=== PATIENT | female | born 1980 | race American Indian/Alaskan Native ===

== ENCOUNTER 2021-11-07 03:49 | Emergency (ER) | payer MEDICAID ==
[2021-11-07 05:19] LABS: Basophils % (Auto) 0.8 % (0.0-1.8); Eosinophils # (Auto) 0.1 K/mm3 (0.0-0.4); Eosinophils % (Auto) 1.6 % (0.0-4.3); Hematocrit 36.7 % (30.3-42.9); Hemoglobin 12.1 gm/dl (10.1-14.3); Lymphocytes # (Auto) 2.4 K/mm3 (1.2-5.4); Lymphocytes % (Auto) 39.4 % (13.4-35.0); Mean Corpuscular HGB Conc 33 % (30-34); Mean Corpuscular Volume 93 fl (79-97); Monocytes # (Auto) 0.6 K/mm3 (0.0-0.8); Monocytes % (Auto) 9.6 % (0.0-7.3); Platelet Count 215 K/mm3 (140-440); Red Blood Count 3.92 M/mm3 (3.65-5.03); Red Cell Distribution Width 14.6 % (13.2-15.2)
[2021-11-07 05:35] LABS: Alanine Aminotransferase 12 units/L (7-56); BUN/Creatinine Ratio 11; Blood Urea Nitrogen 11 mg/dL (7-17); Calcium 9.1 mg/dL (8.4-10.2); Hemolysis Index 3
--- NOTE | 2021-11-07 06:08 | Emergency Department Report ---
ED General Adult HPI - General Chief complaint: Psych Stated complaint: SUICIDAL THOUGHTS Time Seen by Provider: 11/07/21 04:19 Source: patient Mode of arrival: Ambulatory Limitations: No Limitations - History of Present Illness Initial comments: patient presents with complaints of suicidal thoughts with a plan to cut her wrist, but has not done yet. Endorses visual hallucinations, but denies auditory, has a hx of depression. Denies CP, SOB, palpitations, diaphoresis. c Severity scale (0 -10): 0 - Related Data Allergies Allergy/AdvReac Type Severity Reaction Status Date / Time codeine Allergy Hives Verified 11/07/21 04:23 nicotine patch Allergy Itching Uncoded 11/07/21 04:24 ED Review of Systems ROS: Stated complaint: SUICIDAL THOUGHTS Other details as noted in HPI Comment: All other systems reviewed and negative Constitutional: denies: chills, fever ED Past Medical Hx - Past Medical History Previous Medical History?: Yes Hx Psychiatric Treatment: Yes (Bipolar, Depression,Anxiety, Schizophrenia) - Surgical History Past Surgical History?: Yes Additional Surgical History: Breast Reduction. X 2. Eye surgery - Social History Smoking Status: Current Every Day Smoker Substance Use Type: Cocaine ED Physical Exam - General Limitations: No Limitations General appearance: alert, in no apparent distress - Head Head exam: Present: atraumatic, normocephalic - Eye Eye exam: Present: PERRL, EOMI - ENT ENT exam: Present: mucous membranes moist, other (airway patent) - Neck Neck exam: Present: other (supple; no JVD) - Respiratory Respiratory exam: Present: other (good air entry, nml I:E, CTAB no use of IFEOMA) - Cardiovascular Cardiovascular Exam: Present: regular rate. Absent: rubs, gallop - Extremities Exam Extremities exam: Present: full ROM. Absent: tenderness - Back Exam Back exam: Present: full ROM. Absent: tenderness - Neurological Exam Neurological exam: Present: alert, oriented X3, CN II-XII intact. Absent: motor sensory deficit - Skin Skin exam: Present: warm, normal color ED Course Vital Signs 11/07/21 11/07/21 11/07/21 04:07 04:47 04:49 Temperature 98 F 98.0 F Pulse Rate 81 80 Respiratory 18 18 Rate Blood Pressure 147/95 Blood Pressure 147/95 [Left] O2 Sat by Pulse 100 98 100 Oximetry ED Medical Decision Making - Lab Data Result diagrams: 11/07/21 04:54 11/07/21 04:54 Laboratory Tests 11/07/21 11/07/21 11/07/21 04:54 04:54 04:54 WBC 6.0 RBC 3.92 Hgb 12.1 Hct 36.7 MCV 93 MCH 31 MCHC 33 RDW 14.6 Plt Count 215 Lymph % (Auto) 39.4 H [place] % (Auto) 9.6 H Eos % (Auto) 1.6 Baso % (Auto) 0.8 Lymph # (Auto) 2.4 Meagher # (Auto) 0.6 Eos # (Auto) 0.1 Baso # (Auto) 0.0 Seg Neutrophils % 48.6 Seg Neutrophils # 2.9 Sodium 138 Potassium 3.3 L Chloride 102.4 Carbon Dioxide 25 Anion Gap 14 BUN 11 Creatinine 1.0 Estimated GFR > 60 BUN/Creatinine Ratio 11 Glucose 97 Calcium 9.1 Total Bilirubin 0.20 AST 17 ALT 12 Alkaline Phosphatase 55 Total Protein 6.9 Albumin 4.0 Albumin/Globulin Ratio 1.4 Salicylates < 0.3 L Acetaminophen Plasma/Serum Alcohol 11/07/21 11/07/21 04:54 04:54 WBC RBC Hgb Hct MCV MCH MCHC RDW Plt Count Lymph % (Auto) [place] % (Auto) Eos % (Auto) Baso % (Auto) Lymph # (Auto) Meagher # (Auto) Eos # (Auto) Baso # (Auto) Seg Neutrophils % Seg Neutrophils # Sodium Potassium Chloride Carbon Dioxide Anion Gap BUN Creatinine Estimated GFR BUN/Creatinine Ratio Glucose Calcium Total Bilirubin AST ALT Alkaline Phosphatase Total Protein Albumin Albumin/Globulin Ratio Salicylates Acetaminophen 5.0 L Plasma/Serum Alcohol < 0.01 UA, U tox pending - Medical Decision Making 1013 signed. MH consulted. Critical care attestation.: If time is entered above; I have spent that time in minutes in the direct care of this critically ill patient, excluding procedure time. ED Disposition Clinical Impression: Suicidal thoughts Disposition: 30 STILL A PATIENT Is pt being admited?: No Does the pt Need Aspirin: No Condition: Stable Time of Disposition: 06:08 (Patient care transferred to Dr. Dickens (oncoming ER doc). Sign out was given to him by me.)
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
--- NOTE | 2021-11-07 12:06 | Event Note ---
Date: 11/07/21 Diagnoses: Schizoaffective Disorder Treatment Plan Continue Olanzapine 5mg po BID Trazodone 50mg po QHS PSYCHOTHERAPY: Supportive psychotherapy provided MEDICAL: Per primary team DELIRIUM PRECAUTIONS: Please re-orient patient frequently, keep lights on during the day, and minimize benzodiazepines and opiates as these medications could worsen patient's confusion. EMAIL PRODUCTION CONSULTANT: Per medical team DISPOSITION: Recommend acute psychiatric inpatient treatment. Will follow. Thank you for the consult. Case staffed with Dr. Morel Have seen the patient myself and patient remains hemodynamically stable and afebrile. Appreciate psychiatric recommendation.
[2021-11-07] MEDS ORDERED: traZODone 50 MG TAB PO SCH (22:00)
[2021-11-08 09:48] VITALS: BP 143/90
--- NOTE | 2021-11-08 10:57 | Progress Note ---
Subjective - Reason for Consult Consult date: 11/08/21 Reason for consult: Suicial ideation - Chief Complaint Chief complaint: The patient was seen this morning. She reports doing well. She reports sleep and appetite as good. The patient denies any current suicidal/homicidal ideation and denies hallucinations. REVIEW OF SYSTEMS Constitutional: Negative for weight loss ENT: Negative for stridor Respiratory: Negative for cough or hemoptysis All other systems reviewed and are negative MENTAL STATUS EXAMINATION General Appearance and Behavior: Age appropriate, wearing appropriate clothes, cooperative, polite with questioning, good eye contact, calm, polite Cooperation: cooperative Psychomotor Behavior: Psychomotor normal Mood: Depressed Affect and affective range: Congruent with stated mood Thought Process: Goal directed Thought Content: Denies Speech: Normal volume, Regular rate and rhythm Suicidal Ideation: Denies Homicidal Ideation: Denies Hallucination: Denies Delusions: None elicited Impulse Control: limited Insight and Judgment: Limited Memory: Intact Attention: attentive Orientation: Alert and oriented Diagnoses: Schizoaffective Disorder Treatment Plan Continue DC 1013 Case management Olanzapine 5mg po QHS Trazodone 50mg po QHS PSYCHOTHERAPY: Supportive psychotherapy provided MEDICAL: Per primary team DELIRIUM PRECAUTIONS: Please re-orient patient frequently, keep lights on during the day, and minimize benzodiazepines and opiates as these medications could worsen patient's confusion. MOTORCYCLE DELIVERER: Per medical team DISPOSITION: Do not recommend acute psychiatric inpatient treatment. Machine Assembler will provide patient with psychiatric outpatient resources. Will sign out. Thank you for the consult. Case staffed with Dr. Morel Medications and Allergies Mental Status Exam - Vital signs Last Vital Signs Temp 98.6 F 11/08/21 09:46 Pulse 62 11/08/21 09:46 Resp 18 11/08/21 09:48 BP 143/90 11/08/21 09:46 Pulse Ox 100 11/08/21 09:48
== END 2021-11-08 12:17 | disposition home or self-care (01) ==
LOC: ED 03:49
DX: R45.851 Suicidal ideations (principal); F31.9 Bipolar disorder, unspecified; F17.200 Nicotine dependence, unspecified, uncomplicated; Z20.822 Contact with and (suspected) exposure to COVID-19
CPT/HCPCS: 36415; 80053; 85025; 99284; U0003; 80320; G0480